=== PATIENT | male | born 1960 | race Caucasian/White ===

== ENCOUNTER 2019-01-29 20:28 | Inpatient (IN) | payer OTHER ==
[~2019-01-29] VITALS: Ht 177.8 cm; Wt 72.8 kg
--- NOTE | 2019-01-29 20:42 | ERD ---
ER Documentation Chief Complaint Chief Complaint NON RADIATING CP SARTED AT 1900,DENIES SOB HPI The patient is a 58-year-old male, presenting to the ER because of substernal chest pain, nonradiating, non-provoked began around 7 PM while he was sitting. He denies similar symptoms previously, he has intermittent symptoms for the last 2 weeks after he was started on Crestor. The chest pain is somewhat decreased with burping but not with this episode. He denies chest pain with vomiting/radiation/exertion/diaphoresis, dyspnea, abdominal pain, vomiting, dysuria, diarrhea. He does not smoke, drinks socially, denies illicit drug EMS administered 162 mg of aspirin with good response Medical history: Hypertension, dyslipidemia Past surgical history: Hemorrhoidectomy ROS All systems reviewed and are negative except as per history of present illness. Medications Home Meds Reported Medications Multivitamins* (Theragran*) 1 Tab Tab, 1 TAB PO DAILY, TAB 01/29/19 Rosuvastatin Calcium* (Crestor*) 10 Mg Tablet, 10 MG PO QHS, #30 TAB 01/29/19 Allergies Allergies: Coded Allergies: No Known Allergy (Unverified , 01/29/19) PMhx/Soc History of Surgery: Yes (HEMORRHOID REMOVAL ) Hx Cardiac Disorders: Yes (HTN, HLD) Hx Alcohol Use: No Hx Substance Use: No Hx Tobacco Use: No Smoking Status: Never smoker Physical Exam Vitals Vital Signs Date Temp Pulse Resp B/P (MAP) Pulse Ox O2 O2 Flow FiO2 Time Delivery Rate 01/29/19 60 16 163/104 100 Room Air 21:55 (123) 01/29/19 98.7 71 16 163/103 100 20:33 (123) Physical Exam Const: No acute distress. Head: Atraumatic. Eyes: Normal Conjunctiva. ENT: Normal External Ears, Nose and Mouth. Neck: Full range of motion. No meningismus. Resp: Clear to auscultation bilaterally. Cardio: Regular rate and rhythm. Abd: Soft, non distended, normal bowel sounds, non tender. Skin: No petechiae or rashes. Back: No midline or flank tenderness. Ext: No cyanosis, or edema. Neur: Awake and alert. No focal deficit Psych: Normal Mood and Affect. Result Diagram: 01/29/19203901/29/192039 Results 24 hrs Laboratory Tests Test 01/29/19 20:40 White Blood Count 8.4 10^3/ul Red Blood Count 5.53 10^6/ul Hemoglobin 15.9 g/dl Hematocrit 47.2 % Mean Corpuscular Volume 85.4 fl Mean Corpuscular Hemoglobin 28.8 pg Mean Corpuscular Hemoglobin Concent 33.7 g/dl Red Cell Distribution Width 12.7 % Platelet Count 358 10^3/UL Mean Platelet Volume 9.1 fl Immature Granulocytes % 0.500 % Neutrophils % 75.1 % Lymphocytes % 16.3 % Monocytes % 6.1 % Eosinophils % 1.3 % Basophils % 0.7 % Nucleated Red Blood Cells % 0.0 /100WBC Immature Granulocytes # 0.040 10^3/ul Neutrophils # 6.3 10^3/ul Lymphocytes # 1.4 10^3/ul Monocytes # 0.5 10^3/ul Eosinophils # 0.1 10^3/ul Basophils # 0.1 10^3/ul Nucleated Red Blood Cells # 0.0 10^3/ul Sodium Level 141 mmol/L Potassium Level 3.7 mmol/L Chloride Level 107 mmol/L Carbon Dioxide Level 25 mmol/L Anion Gap 9 Blood Urea Nitrogen 11 mg/dl Creatinine 0.71 mg/dl Est Glomerular Filtrat Rate mL/min > 60 mL/min Glucose Level 123 mg/dl Calcium Level 9.5 mg/dl Creatine Kinase 204 IU/L Troponin I 0.096 ng/ml Current Medications Medications Dose Sig/Milagro Start Time Status Last (Trade) Ordered Route PRN Stop Time Admin Dose Reason Admin Aspirin 162 mg ONCE ONCE 01/29/19 DC 01/29/19 (Aspirin) PO 22:30 22:34 01/29/19 22:31 1 inch ONCE ONCE 01/29/19 DC 01/29/19 Nitroglycerin TD 22:30 22:34 01/29/19 22:31 (Nitroglyceri n 2% Oint) Procedures/[place] [id number] Radiology Main Line: [phone] DIAGNOSTIC IMAGING REPORT Patient: HOANG BOLTON : 1960 Age: 58 Sex: M MR #: [id number] DOS: 01/29/192042 Ordering MD: SURI HOWARD MD Location: E/R Room/Bed: PROCEDURE: XR Chest. CLINICAL INDICATION: Chest pain TECHNIQUE: Frontal chest x-ray was obtained. COMPARISON: None. FINDINGS: The heart is not enlarged. Mediastinum is not widened. No hilar masses seen. Lungs are clear of any infiltrates. There is no effusion or pneumothorax. The osseous structures appear normal. IMPRESSION: No evidence for active cardiopulmonary disease. .Donis Phillips MD, MD Date Time Electronically viewed and signed by .Donis Phillips MD, MD on 01/29/2019 21:28 .A/ CC: SURI HOWARD MD [phone] EK:31p Read by emergency physician Rate/Rhythm: Normal Sinus Rhythm 65 beats/min QRS, ST, T-waves: No ST elevation, nonspecific ST and T abnormality, no PVC Impression: Abnormal EKG MEDICAL MAKING DECISION: The patient is a 58-year-old male with multiple cardiac risk factor, presenting with acute chest pain that is concerning for acute ACS. He was treated with additional aspirin 162 mg p.o. and 1 inch of nitroglycerin ointment to the chest wall with good response The differential diagnoses considered include but are not limited to acute coronary syndrome, acute myocardial infarction, pericarditis, pulmonary embolism, aortic dissection, pneumonia, pleural effusion, pneumothorax, GERD, chest wall pain. Departure Diagnosis: Primary Impression: Chest pain Condition: Stable Comments I discussed the findings with the patient. I discussed the patient with the [place] doctor at 11:55pm, who was made aware of the lab, the treatment, the patient condition. He agreed to admit the patient if the second troponin is negative Disclaimer: Inadvertent spelling and grammatical errors are likely due to EHR/dictation software use and do not reflect on the overall quality of patient care. Also, please note that the electronic time recorded on this note does not necessarily reflect the actual time of the patient encounter. SURI HOWARD MD January 29, 2019 20:42
[2019-01-29] MEDS ORDERED: NITROGLYCERIN 2% 1 GM OINT PKT TD ONE (22:30)
[2019-01-29] MEDS ORDERED: ASPIRIN 81 MG TAB PO ONE (22:30)
[2019-01-29] MEDS ORDERED: RSV10T PO (23:33)
[2019-01-29] MEDS ORDERED: MULTI PO (23:33)
[2019-01-30] VITALS (8 sets, daily range): BP systolic 104–137; BP diastolic 66–84; PULSE 66–81; RESP 16–18; Ht 177.8 cm; Wt 72.8 kg
[2019-01-30] MEDS ORDERED: ENOXAPARIN 40 MG/0.4 ML SYG SC STA (04:10)
[2019-01-30] MEDS ORDERED: ENOXAPARIN 80 MG/0.8 ML SYG SC ONE (04:30)
[2019-01-30] MEDS ORDERED: NITROGLYCERIN (SL) 0.4 MG TAB SL PRN (04:30)
[2019-01-30] MEDS ORDERED: NACL 0.9% 3 ML SYG IV SCH (04:30)
[2019-01-30] MEDS ORDERED: HYDROCODONE/APAP (5/325) TAB PO PRN ×2 (04:30)
[2019-01-30] MEDS ORDERED: ACETAMINOPHEN 325 MG TAB PO PRN (04:30)
[2019-01-30] MEDS ORDERED: ALBUTEROL/IPRATROPIUM (NEB) 3 ML AMP HHN PRN (04:30)
[2019-01-30] MEDS ORDERED: METOPROLOL 25 MG TAB PO SCH (04:30)
[2019-01-30] MEDS ORDERED: ONDANSETRON 4 MG INJ IV PRN (04:30)
[2019-01-30] MEDS: DEXTROSE 5%-0.45% NACL 1,000 ML IV SCH ×3 (05:00→20:24)
--- NOTE | 2019-01-30 06:46 | HP ---
Date/Time of Note Date/Time of Note DATE: 01/30/19 TIME: 06:42 Assessment/Plan VTE Prophylaxis Pharmacological prophylaxis: other Lines/Catheters IV Catheter Type (from Nrs): Saline Lock Assessment/Plan Assessment/Plan 1. NSTEMI -Status post treatment dose Lovenox and aspirin in ER -Third troponin significantly high. -will load with Plavix -Statin, beta-enrrique, scheduled nitro -Continue anticoagulation -2D echo and cardiology consult 2. Dyslipidemia: He said " my cholesterol has always been high since I was a teenager". He said he was just started on Crestor 2 weeks ago -Continue statin 3. Hypertension: Patient said his blood pressure has usually been in the 170s, but was never taken any medication -Started him on Lopressor Result Diagram: 01/30/19 0528 01/30/19 0527 Results 24hrs Laboratory Tests Test 01/29/19 20:40 01/30/19 00:10 01/30/19 05:27 01/30/19 05:28 White Blood Count 8.4 9.5 Red Blood Count 5.53 5.39 Hemoglobin 15.9 15.9 Hematocrit 47.2 46.6 Mean Corpuscular 85.4 86.5 Volume Mean Corpuscular 28.8 L 29.5 Hemoglobin Mean Corpuscular 33.7 34.1 Hemoglobin Concent Red Cell 12.7 13.2 Distribution Width Platelet Count 358 352 Mean Platelet Volume 9.1 9.3 Immature 0.500 H 0.400 Granulocytes % Neutrophils % 75.1 74.4 Lymphocytes % 16.3 14.5 L Monocytes % 6.1 8.4 Eosinophils % 1.3 1.5 Basophils % 0.7 0.8 Nucleated Red Blood 0.0 0.0 Cells % Immature 0.040 H 0.040 H Granulocytes # Neutrophils # 6.3 7.1 Lymphocytes # 1.4 1.4 Monocytes # 0.5 0.8 Eosinophils # 0.1 0.1 Basophils # 0.1 0.1 Nucleated Red Blood 0.0 0.0 Cells # Sodium Level 141 142 Potassium Level 3.7 4.3 Chloride Level 107 105 Carbon Dioxide Level 25 31 Anion Gap 9 6 Blood Urea Nitrogen 11 10 Creatinine 0.71 0.80 Est Glomerular > 60 > 60 Filtrat Rate mL/min Glucose Level 123 125 Calcium Level 9.5 9.8 Creatine Kinase 204 H 444 #H Troponin I 0.096 0.801 *H 3.960 *H Magnesium Level 2.3 Total Bilirubin 0.5 Direct Bilirubin 0.00 Indirect Bilirubin 0.5 Aspartate Amino 58 H Transf (AST/SGOT) Alanine 38 Aminotransferase (AL T/SGPT) Alkaline Phosphatase 59 Total Protein 7.1 Albumin 4.4 Globulin 2.70 Albumin/Globulin 1.62 Ratio Triglycerides Level 127 Cholesterol Level 156 LDL Cholesterol, 73 Calculated HDL Cholesterol 58 Cholesterol/HDL 2.6 Ratio Thyroid Stimulating Pending Hormone (TSH) Creatine Kinase 5.9 Index Creatinine Kinase MB 26.20 H (Mass) HPI/ROS Admit Date/Time Admit Date/Time Hx of Present Illness This is a 58-year-old male with a history of dyslipidemia who presents the ER complaining of chest pain. He said he was started on Crestor 2 weeks ago and since then, he said he has been experiencing chest pain. Pain is substernal, just above the epigastric area. He said the pain is better when he burps. He attributed pain to Crestor, but he continued to take the medication. He said that he did talk to his doctor about it. He also thought that her pain was from acid reflux because it was exacerbated after he ate spicy food. When he presented to the ER, his initial troponin was 0.096. EKG shows nonspecific ST-T wave abnormality without ST elevation. Patient belongs to [place] and initial plan by ER was to transfer the patient to [place]. While he was still in the ER, his second troponin came back positive at 0.8. He was given treatment dose Lovenox and aspirin. His third troponin now came back almost 4. Patient awaiting admission here to telemetry. Cardiology consult will be placed. PMH/Family/Social Past Medical History Past Medical History Medical History: other (See HPI) Past Surgical History Past Surgical Hx: other (See HPI) Family History Significant Family History: no pertinent family hx Social History Alcohol Use: none Smoking Status: Never smoker Drug Use: none Exam Constitutional: alert, oriented, well developed Head: normocephalic, atraumatic Eyes: EOMI, PERRL Respiratory: clear to auscultation, normal air movement Cardiovascular: regular rate and rhythm, nl pulses Gastrointestinal: soft, non-tender Extremities: normal pulses Medications Current Medications Dextrose/Sodium Chloride 1,000 ml @ 75 mls/hr [id number] IV ; Start 01/30/19 at 04:10 IV Flush (NS 3 ml) 3 ml PER PROTOCOL IV ; Start 01/30/19 at 04:30 Ondansetron HCl (Zofran Inj) 4 mg Q6H PRN IV NAUSEA/VOMITING; Start 01/30/19 at 04:30 Nitroglycerin (Nitroglycerin (Sl Tab) 0.4 Mg) 1 tab Q5M PRN SL .CHEST PAIN; Start 01/30/19 at 04:30 Acetaminophen (Tylenol Tab) 650 mg Q6H PRN PO .PAIN 1-3 OR TEMP; Start 01/30/19 at 04:30 Acetaminophen/ Hydrocodone Bitart ([place] (5/325)) 1 tab Q6H PRN PO .PAIN 4-6; Start 01/30/19 at 04:30 Acetaminophen/ Hydrocodone Bitart ([place] (5/325)) 2 tab Q6H PRN PO .PAIN 7-10; Start 01/30/19 at 04:30 Albuterol/ Ipratropium (Duoneb) 3 ml Q2H RESP THERAPY PRN HHN SHORTNESS OF BREATH; Start 01/30/19 at 04:30 Metoprolol Tartrate (Lopressor) 12.5 mg Q12H PO Last administered on 01/30/19at 06:05; Admin Dose 12.5 MG; Start 01/30/19 at 04:30 Atorvastatin Calcium (Lipitor) 40 mg DAILY@21 PO ; Start 01/30/19 at 21:00 Coded Allergies: No Known Allergy (Unverified , 01/29/19) Social History Smoking Status: Never smoker Exam/Review of Systems Vital Signs Vitals Vital Signs Date Temp Pulse Resp B/P (MAP) Pulse Ox O2 O2 Flow FiO2 Time Delivery Rate 01/30/19 68 16 160/101 100 Nasal 2.0 05:49 (120) Cannula 01/29/19 98.7 20:33 IVAN ERVIN MD January 30, 2019 06:46
[2019-01-30] MEDS ORDERED: CLOPIDOGREL 75 MG TAB PO ONE (07:00)
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
--- NOTE | 2019-01-30 16:08 | RADRPT ---
Echocardiogram Report Patient Name: HOANG BOLTONPatient ID: [id number] : 1960 (58y 9m)Study Date: 01/30/2019 9:19:38 AM Gender: Dorothycession #: [id number] Tech: Mikie Monson [facility] Location: [address] Ref.Physician: IVAN ERVIN Height(Cm): BSA: Weight(Kg): Quality: AdequateOrder Physician: IVAN ERVIN Account #: Procedures: Echocardiographic Report: Transthoracic echocardiogram with complete 2D, M-Mode, and doppler examination. Indications: NSTEMI. Measurements: 2D/M Mode Doppler Measurement Value Normal Range Measurement Value Normal Range LVIDd 2D 4.7 [ 4.2 - 5.8 ] cm AV Peak Yaya 1.1 [ 100.0 - 170.0 ] cm/sec LVIDs 2D 3.6 [ 2.5 - 4.0 ] cm AV Peak PG 5.0 [ 2.0 - 9.0 ] mmHg LVPWd 2D 1.0 [ 0.6 - 1.0 ] cm LVOT Peak Yaya 0.9 [ 70.0 - 110.0 ] cm/sec IVSd 2D 1.2 [ 0.6 - 1.0 ] cm LVOT Peak PG 3.0 [ 2.0 - 6.0 ] mmHg AoR Diam 2D 2.9 [ 2.6 - 3.4 ] cm MV E Peak Yaya 0.6 [ 60.0 - 130.0 ] cm/sec EDV 2D 103.0 [ 62.0 - 150.0 ] ml MV A Peak Yaya 0.8 [ 100.0 - 120.0 ] cm/sec ESV 2D 54.8 [ 21.0 - 61.0 ] ml MV E/A 0.7 [ 0.8 - 1.5 ] ratio EF 2D 46.8 [ 52.0 - 72.0 ] percent MV Decel Time 275 [ 104 - 258 ] msec LA Dimen 2D 3.4 [ 3.0 - 4.0 ] cm Lat E` Yaya 0.1 [ 10.0 - 15.0 ] cm/sec Lateral E/E` 7.8 [ 1.0 - 2.0 ] ratio MV E/A 0.7 [ 0.8 - 1.5 ] ratio TR Peak Yaya 2.6 [ 100.0 - 280.0 ] cm/sec TR Peak PG 27.0 mmHg RVSP 30.0 [ 10.0 - 36.0 ] mmHg Findings: Left Ventricle: Normal left ventricular cavity size. Sigmoid septum. Moderate left ventricular systolic dysfunction. Ejection fraction is visually estimated at 35 %. Tissue Doppler/Mitral Doppler indices are consistent with impaired relaxation (Stage I diastolic dysfunction). These segments of the LV are hypokinetic mid anterior segment, apical anterior segment, apex and apical septum. Right Ventricle: Normal right ventricular size. Normal right ventricular systolic function. Left Atrium: The left atrium is normal in size. Right Atrium: The right atrium is normal in size. Mitral Valve: Mild mitral leaflet calcification. Mild mitral annular calcification. Trace mitral regurgitation. Aortic Valve: No hemodynamically significant aortic stenosis by doppler. Aortic cusps appear mildly calcified. Mild aortic valve regurgitation. Tricuspid Valve: Normal appearance of the tricuspid valve. Estimated peak PA systolic pressure 30 mmHg. There is mild tricuspid regurgitation. Pericardium: Normal pericardium with no significant pericardial effusion. Aorta: Normal aortic root. IVC: Normal size and normal respiratory collapse consistent with normal right atrial pressure. Conclusions: Normal left ventricular cavity size. Sigmoid septum. Moderate left ventricular systolic dysfunction. Ejection fraction is visually estimated at 35 %. Tissue Doppler/Mitral Doppler indices are consistent with impaired relaxation (Stage I diastolic dysfunction). These segments of the LV are hypokinetic mid anterior segment, apical anterior segment, apex and apical septum. Mild mitral leaflet calcification. Mild mitral annular calcification. Trace mitral regurgitation. No hemodynamically significant aortic stenosis by doppler. Aortic cusps appear mildly calcified. Mild aortic valve regurgitation. Normal appearance of the tricuspid valve. Estimated peak PA systolic pressure 30 mmHg. There is mild tricuspid regurgitation. Electronically Signed By: Delgado Allison 2019-01-30 16:07:47 PDT
[2019-01-30] MEDS: HEPARIN 25000 UNITS/250 ML 250 ML IV SCH ×2 (16:27→18:10)
[2019-01-30] MEDS ORDERED: HEPARIN 1000 UNITS/ML 10 ML INJ IV ONE (17:00)
[2019-01-30] MEDS: ATORVASTATIN 80 MG TAB PO SCH (20:31)
[2019-01-30] MEDS: METOPROLOL 25 MG TAB PO SCH (20:32)
--- NOTE | 2019-01-30 20:43 | CONS ---
DATE OF ADMISSION: 01/30/2019 DATE OF CONSULTATION: 01/30/2019 REASON FOR CONSULTATION: Non-ST elevation myocardial infarction. REQUESTING PHYSICIAN: From the hospitalist service and Dr. Jorge. HISTORY OF PRESENT ILLNESS: Mr. Guillory is a 58-year-old male with history of dyslipidemia and recently diagnosed hypertension not yet on medications who states he was at work and he had onset of a chest pain described as a chest pressure and states that it would not go away throughout the day and subsequently presented to the Emergency Department here at [facility] where, upon arrival, temperature was 98.7, blood pressure markedly elevated at 163/103, pulse 71, respiratory rate of 16 and sat of 100%. The patient's labs were notable for a sodium of 141, creatinine 0.7 and BUN of 11. Troponin of 0.096. White cell 8.4, hemoglobin 15.9, platelet count of 258. The patient underwent a chest x-ray revealing no evidence of acute cardiopulmonary abnormalities. The patient's electrocardiogram revealed a normal sinus rhythm at rate of 65, normal axis with anterior T-wave inversion. The patient was admitted to the floor and since admit to floor, his troponin has trended and initially was negative and then became mildly positive and then has increased overnight to high of 5.4 at this time. The patient denies ongoing chest pain at this time. PAST MEDICAL HISTORY: As above in HPI. MEDICATIONS CURRENTLY IN HOSPITAL: 1. Aspirin 81 mg daily. 2. Lipitor 40 mg at bedtime. 3. Plavix 75 mg p.o. x1. 4. Metoprolol 12.5 mg q.12. 5. IV fluid hydration at 50 mL an hour. ALLERGIES: NO KNOWN DRUG ALLERGIES. SOCIAL HISTORY: No current tobacco, social EtOH, no illicit drug use. FAMILY HISTORY: No history of sudden cardiac or early CAD. REVIEW OF SYSTEMS: As above in HPI. CONSTITUTIONAL: No fevers or chills. PULMONARY: No current shortness of breath. CARDIOVASCULAR: No current chest pain. GASTROINTESTINAL: No vomiting. GENITOURINARY: No hematuria. MUSCULOSKELETAL: Degenerative joint disease. PSYCHIATRIC: The patient has depression. NEUROLOGIC: No documented CVA. PHYSICAL EXAMINATION: VITAL SIGNS: Temperature of 98, blood pressure 104/66, pulse 66, respiratory rate 18, saturating 99%. GENERAL: The patient is alert, awake, no acute distress. NECK: JVP approximately 8 cm water. CHEST: Fair air movement throughout. HEART: Regular rate and rhythm. Normal S1, S2, I/ murmur. Nondisplaced PMI. ABDOMEN: Positive bowel sounds, soft. EXTREMITIES: No significant pitting edema, 1+ pulses, posterior tibial. LABORATORY DATA: As above in HPI with most recently from today, troponin of 5.4. CK-MB of 29, up from 26.2. CK 406, down from 404. White cell count 9.5, hemoglobin 15.9 and platelet count 252. IMAGING STUDIES: As above in HPI. No further imaging for my review at this time. ECG: As above in HPI. No further electrocardiograms for my review at this time. IMPRESSION: 1. Non-ST elevation myocardial infarction with mildly trending cardiac enzymes. 2. Chest pain on admit, currently improved but consistent with patient's non-ST elevation myocardial infarction. 3. Abnormal electrocardiogram with anterior T-wave inversion. 4. Hypertension, borderline. 5. History of dyslipidemia. RECOMMENDATIONS: 1. At this time, the patient has been given a dose of Lovenox today, making anticoagulation somewhat difficult for catheterization. The patient has no chest pain at this time, but the patient does obtain enzymes and, therefore, I believe the patient will benefit from a cardiac catheterization during this index admission for treatment of non-ST elevation myocardial infarction. Thus, at this time, would maintain the patient on aspirin. The patient has already been on Plavix loading and can start p.o. Plavix tomorrow. 2. The patient will be made n.p.o. in preparation for a left heart catheterization likely to take place first thing in the morning. 3. Check a 2D echo to further assess the patient's ejection fraction and continue to check serial EKGs to assess for significant ongoing changes. Discontinue the patient's statin. We will increase it to high-dose statin at 80 mg for placement of a preoperative stent in the setting of acute [place]. Thank you for allowing me to take part in the care of this patient. I will continue to follow along very closely with you with further recommendations to be made as the patient progresses through his inpatient hospital course. Dictated By: JASON MCELROY/CINTIA Conf#: [id number] DID#: [id number] CC: SHAI JORGE MD; IVAN ERVIN MD;*EndCC* MTDD
[2019-01-30] MEDS ORDERED: NON-FORMULARY/PATIENT OWN MED (Rosuvastatin Calcium* (Crestor*) 10 MG) PO SCH (21:00)
[2019-01-30] MEDS ORDERED: ATORVASTATIN 40 MG TAB PO SCH (21:00)
[2019-01-30] MEDS: HEPARIN 1000 UNITS/ML 10 ML INJ IV PRN (22:29)
[2019-01-31] VITALS (40 sets, daily range): BP systolic 125–167; BP diastolic 78–108; PULSE 60–93; RESP 10–18
[2019-01-31] MEDS ORDERED: DIAZEPAM 5 MG TAB PO ONE (07:00)
[2019-01-31] MEDS ORDERED: DIPHENHYDRAMINE 50 MG CAP PO ONE (07:00)
[2019-01-31] MEDS: ASPIRIN (EC) 81 MG TAB PO SCH (08:15)
[2019-01-31] MEDS: METOPROLOL 25 MG TAB PO SCH ×2 (08:16→20:17)
[2019-01-31] MEDS: HEPARIN 1000 UNITS/ML 10 ML INJ IV PRN (09:59)
[2019-01-31] MEDS: HEPARIN 25000 UNITS/250 ML 250 ML IV SCH (10:00)
[2019-01-31] MEDS ORDERED: HEPARIN 1000 UNITS/ML 10 ML INJ ONE (11:11)
[2019-01-31] MEDS ORDERED: LIDOCAINE 1% (MDV) 20 ML INJ ONE (11:11)
[2019-01-31] MEDS ORDERED: IODIXANOL LOCM 100 ML BTL ONE ×4 (11:11→13:28)
[2019-01-31] MEDS ORDERED: NITROGLYCERIN (IC) 100 MCG/ML INJ ONE ×2 (11:12→13:06)
[2019-01-31] MEDS ORDERED: VERAPAMIL 5 MG INJ ONE (11:12)
[2019-01-31] MEDS ORDERED: MIDAZOLAM 1 MG/ML 2 ML INJ ONE (11:12)
[2019-01-31] MEDS ORDERED: FENTAnyl 50 MCG/ML VIAL ONE (11:12)
[2019-01-31] MEDS ORDERED: IOHEXOL 350MG/ML 50 ML BTL ONE (11:38)
[2019-01-31] MEDS ORDERED: BIVALIRUDIN 250MG /NS 50 ML 50 ML IVPB ONE ×2 (12:20→12:49)
[2019-01-31] MEDS ORDERED: ASPIRIN 325 MG TAB ONE (13:26)
[2019-01-31] MEDS ORDERED: TICAGRELOR 90 MG TABLET ONE (13:26)
--- NOTE | 2019-01-31 13:35 | CONS ---
Assessment/Plan Assessment/Plan Hospital Course (Demo Recall) IMPRESSION: 1. Non-ST elevation myocardial infarction with peak trop 5 2. Chest pain on admit, currently improved but consistent with patient's non-ST elevation myocardial infarction. 3. Abnormal electrocardiogram with anterior T-wave inversion. 4. Hypertension 5. History of dyslipidemia. Recc: -Tele -Continue asa -Continue metoprolol -continue statin -LHC with probable PTCA/stent today Consultation Date/Type/Reason Admit Date/Time January 30, 2019 at 01:28 Initial Consult Date 01/30/19 Type of Consult Cardiology Reason for Consultation Nstemi Requesting Provider: BRIE NEAL Date/Time of Note DATE: 01/31/19 TIME: 13:31 Exam/Review of Systems Vital Signs Vitals Vital Signs Date Temp Pulse Resp B/P (MAP) Pulse Ox O2 O2 Flow FiO2 Time Delivery Rate 01/31/19 66 08:18 01/31/19 Nasal 2.0 08:00 Cannula 01/31/19 98.4 16 125/79 97 07:27 (94) Intake and Output 01/30/19 01/30/19 01/31/19 1414:59 22:59 06:59 IntakeIntake Total 1050 ml BalanceBalance 1050 ml Exam Exam Review of Systems: CONSTITUTIONAL: No fevers, chills. PULMONARY: No sob CARDIOVASCULAR: intermirtten chest pain/palpitations GASTROINTESTINAL: No nausea/vomiting. GENITOURINARY: No hematuria/dysuria. MUSCULOSKELETAL: No myagias/arthalgias. PSYCHIATRIC: The patient denies depression. NEUROLOGIC: No weakness Constitutional: alert Psych: no complaints Head: normocephalic ENMT: mucosa pink and moist Neck: supple, jvd (9 cm water) Respiratory: clear to auscultation Cardiovascular: regular rate and rhythm Gastrointestinal: soft, non-tender Musculoskeletal: muscle tone (normal) Extremities: edema (none) Neurological: other (No focal deficits) Labs Result Diagram: 01/31/1972001/31/19720 Results 24hrs Laboratory Tests Test 01/30/19 14:45 01/30/19 16:54 01/30/19 20:39 01/31/19 07:21 Creatine Kinase 387 H Creatine Kinase 6.5 Index Creatinine Kinase MB 25.30 H (Mass) Troponin I 5.050 *H 2.200 *H White Blood Count 10.5 8.8 Red Blood Count 5.37 5.19 Hemoglobin 15.7 15.0 Hematocrit 46.0 45.1 Mean Corpuscular 85.7 86.9 Volume Mean Corpuscular 29.2 28.9 L Hemoglobin Mean Corpuscular 34.1 33.3 Hemoglobin Concent Red Cell 13.2 13.2 Distribution Width Platelet Count 364 330 Mean Platelet Volume 9.3 9.4 Immature 0.500 H 0.200 Granulocytes % Neutrophils % 76.7 73.6 Lymphocytes % 13.4 L 15.9 Monocytes % 7.7 7.8 Eosinophils % 1.0 1.7 Basophils % 0.7 0.8 Nucleated Red Blood 0.0 0.0 Cells % Immature 0.050 H 0.020 Granulocytes # Neutrophils # 8.1 H 6.5 Lymphocytes # 1.4 1.4 Monocytes # 0.8 0.7 Eosinophils # 0.1 0.2 Basophils # 0.1 0.1 Nucleated Red Blood 0.0 0.0 Cells # Prothrombin Time 13.5 13.6 Prothrombin Time 1.1 1.1 Ratio INR International 1.02 1.03 Normalized Ratio Activated > 180.0 *H 32.9 36.5 H Partial Thromboplast Time Sodium Level 142 Potassium Level 3.5 Chloride Level 108 Carbon Dioxide Level 28 Anion Gap 6 Blood Urea Nitrogen 11 Creatinine 0.80 Est Glomerular > 60 Filtrat Rate mL/min Glucose Level 130 Hemoglobin A1c 5.6 Calcium Level 8.9 Phosphorus Level 3.9 Magnesium Level 2.2 Triglycerides Level 126 Cholesterol Level 143 LDL Cholesterol, 66 Calculated HDL Cholesterol 52 Cholesterol/HDL 2.7 Ratio Thyroid Stimulating Pending Hormone (TSH) Medications Medications Current Medications IV Flush (NS 3 ml) 3 ml PER PROTOCOL IV ; Start 01/30/19 at 04:30 Ondansetron HCl (Zofran Inj) 4 mg Q6H PRN IV NAUSEA/VOMITING; Start 01/30/19 at 04:30 Nitroglycerin (Nitroglycerin (Sl Tab) 0.4 Mg) 1 tab Q5M PRN SL .CHEST PAIN; Start 01/30/19 at 04:30 Acetaminophen (Tylenol Tab) 650 mg Q6H PRN PO .PAIN 1-3 OR TEMP; Start 01/30/19 at 04:30 Acetaminophen/ Hydrocodone Bitart ([place] (5/325)) 1 tab Q6H PRN PO .PAIN 4-6; Start 01/30/19 at 04:30 Acetaminophen/ Hydrocodone Bitart ([place] (5/325)) 2 tab Q6H PRN PO .PAIN 7-10; Start 01/30/19 at 04:30 Albuterol/ Ipratropium (Duoneb) 3 ml Q2H RESP THERAPY PRN HHN SHORTNESS OF BREATH; Start 01/30/19 at 04:30 Aspirin (Halfprin) 81 mg DAILY PO Last administered on 01/31/19 08:15; Admin Dose 81 MG; Start 01/31/19 at 09:00 Metoprolol Tartrate (Lopressor) 25 mg Q12 PO Last administered on 01/31/19 08:16; Admin Dose 25 MG; Start 01/30/19 at 21:00 Heparin Sodium (Porcine) (Heparin (1000 Units/ml)) 4,000 unit PER PROTOCOL PRN IV aPTT<47 Last administered on 01/31/19 09:59; Admin Dose 4,000 UNIT; Start 01/30/19 at 17:00 Heparin Sodium (Porcine) 250 ml @ 8.5 mls/hr PER PROTOCOL IV Last administered on 01/31/19 10:00; Admin Dose 11.5 MLS/HR; Start 01/30/19 at 17:00 Atorvastatin Calcium (Lipitor) 80 mg DAILY@21 PO Last administered on 01/30/19at 20:31; Admin Dose 80 MG; Start 01/30/19 at 21:00 JASON VICENTE January 31, 2019 13:35
[2019-01-31] MEDS ORDERED: SOD CHLORIDE 0.9% 1,000 ML IV SCH (13:39)
--- NOTE | 2019-01-31 13:39 | SIPON ---
Date/Time of Note Date/Time of Note DATE: 01/31/19 TIME: 13:35 Operative Report Preoperative Diagnosis 1,NSTEMI Postoperative Diagnosis 1.obstructive cad s/p stent x 1 to LAD and x 1 to diag Operation/Procedure Performed 1.LHC 2.PTCA/stent x 1 to LAD 3.PTCA/stent x 1 to diag Surgeon see signature line medical billing assistant [place] Anesthesia: moderate sedation Estimated blood loss: minimal Transfusion Required none Specimen none Grafts/Implants none Complications none JASON VICENTE January 31, 2019 13:39
[2019-01-31] MEDS ORDERED: morphine 2 MG INJ IV PRN (14:00)
[2019-01-31] MEDS ORDERED: OXYCODONE/ACETAMINOPHEN (5/325) TAB PO PRN (14:00)
[2019-01-31] MEDS ORDERED: ONDANSETRON 4 MG INJ IV PRN (14:00)
[2019-01-31] MEDS ORDERED: ACETAMINOPHEN 325 MG TAB PO PRN (14:00)
[2019-01-31] MEDS ORDERED: AL HYDROX/MG HYDROX/SIMETH 30 ML CUP PO PRN (14:00)
[2019-01-31] MEDS ORDERED: hydrALAzine 20 MG INJ ONE (16:16)
[2019-01-31] MEDS ORDERED: hydrALAzine 20 MG INJ IV ONE (16:30)
[2019-01-31] MEDS: ATORVASTATIN 80 MG TAB PO SCH (20:17)
[2019-01-31] MEDS: TICAGRELOR 90 MG TABLET PO SCH (20:22)
--- NOTE | 2019-01-31 20:27 | CARRPT ---
DATE OF PROCEDURE: 01/31/2019 TYPE OF PROCEDURE: 1. Left heart catheterization. 2. Coronary angiography. 3. Percutaneous transluminal coronary angioplasty with placement of Synergy drug-eluting stent x1 to diagonal 2.25 x 15 mm and x1 to left anterior descending 3.0 x 18 mm. 4. Moderate conscious sedation. ATTENDING PHYSICIAN: Jason Allison MD REFERRING PHYSICIAN: Joseph Dunaway MD, from the hospitalist service. TYPE OF ANESTHESIA: Conscious and local. INDICATION: [id number] myocardial infarction. BRIEF HISTORY AND HOSPITAL COURSE: Mr. Guillory is a 58-year-old male with history of hypertension, dysl ipidemia who initially presented with complaint of substernal chest pain and ruled in for non-ST-elev ation myocardial infarction, underwent a 2D echo revealing a depressed EF and was then brought to [facility] catheterization lab in order to assess for possibility of significant obstructive coronary arter y disease lending to symptoms of chest pain, loa-VK-tuoelsxen myocardial infarction and decreased EF. PROCEDURE: After informed consent was obtained, the patient was brought to the [facility] cardiac catheterization lab where his right radial area was prepped and draped in a sterile f ashion. A 2% lidocaine was infiltrated into the right radial area to achieve adequate anesthesia. U sing the modified Seldinger technique, radial artery was cannulated and a 6-German arterial sheath wa s placed. A 6-German JL3.5 catheter was used to cannulate the left main coronary ostium. With contr ast injection, multiple views of the left coronary arteries were obtained. A JL3.5 guidewire and JR4 was used to cannulate the right coronary arterial ostium. With contrast injection, multiple views o f the right coronary arteries were obtained. A JL4 was removed over a guidewire and a 6-German pigta il was passed in the ascending aorta and used to measure LVEDP and pullback across the aortic valve t o assess for significant gradient, which there was none and removed. Subsequently, at this time, we moved directly to the interventional procedure. The patient received an Angiomax bolus continuous in fusion, after checking the pre-interventional ACT returning low as he had been on heparin overnight. Initially, the left main coronary ostium was cannulated with a Q3 guide and this we attempted to supervisor microwave ss the lesion with a balanced middleweight guidewire. This proved unsuccessful and was left in place in the diagonal that bifurcated just at the lesion. We then tried a Svp [employer] Sales 50 guidewire unsuccessful and then there we tried a Whisper and then a Svp Digital Sales 200 and then a Fielder XT, all unsuccessful. The n, we tried a Svp Digital Sales 200 with a Corsair device X support, still proved unsuccessful and finally we wer e able to cross the lesion with a Fielder FC, and then from there, we were able to do predilations in itially with a 2.5 x 12 mm balloon was kept watermelon seeding and therefore we used a 2.0 x 20 mm ba lloon to further predilate the LAD improving blood flow, and with improved left flow, we were able to see disease within the diagonal vessel, and so at that time, we placed a 2.5 x 12 mm drug-eluting st ent that was then deployed within the diagonal at 12 atmospheres, postdilated with the stent delivery system up to 14 atmospheres. Followup angiogram was obtained revealing somewhat of a moderate stepd own into the smaller vessel with FRANCIE 3 flow and no signs of complication including perforation or di ssection. Subsequently, the stent balloon was removed and we were able to stent the LAD at this time over a step wire after the wire was pulled back with a 3.0 x 18 mm jugular stent deployed at 14 atmo spheres, postdilated with the stent delivery system up to 18 atmospheres. The delivery balloon was r emoved and a followup angiogram was obtained after 200 mcg of IC nitroglycerin. Followup angiogram w as obtained revealing excellent result, deployment of stent, FRANCIE 3 flow throughout the vessel, no si gns of complication including perforation or dissection, and excellent flow ongoing throughout the di agonal. Subsequently at this time, the initial guide and guidewires were removed. The patient recei shyann Brilinta 180 mg and aspirin 325 mg. This completed the procedure. There were no noted complicat ions. FINDINGS: Coronary angiography: Right coronary artery proximally is a 3 mm vessel and its proximal portion has a 30 to 40% stenosis and this portion has another 10% to 20% stenosis, and then at the bi furcation with the posterolateral PDA, the PDA has an approximately 80% to 90% ostial stenosis. The left main 4.5 mm, no significant stenosis. Circumflex proximally is a 3 mm vessel and free of signif icant stenosis in this region. Circ continuation AV groove does have a distal bifurcation, with the obtuse marginal a 30% to 40% stenosis. There is a high branching obtuse marginal 2 mm with a midbody 50% stenosis and a mid-branching diagonal 2 mm with no significant focal stenoses. The LAD proximal ly is a 3.5 mm vessel and then right at the takeoff is 99% subtotally occluded with FRANCIE 1 to 2 flow extending towards the apex in the LAD and then the diagonal as noted earlier was of improved flow, wh ere we can see significant disease in the diagonal up to approximately 80% diffusely. Measurement of left end diastolic pressure of 9. No significant aortic stenosis by gradient. PTCA AND STENT PLACEMENT: 1. Prior to PTCA and stent placement in the diagonal, the patient had an 80% tubular stenosis. Post -PTCA and stent placement, the patient had no residual stenosis, moderate stepdown at the distal end of the stent. 2. Prior to PTCA and stent placement within the LAD, the patient had a 99% subtotal lesion. Post-PT CA and stent placement, the patient had no residual lesion. FRANCIE 3 flow throughout the vessel, no si gns of complication including perforation or dissection. TOTAL FLUOROSCOPY TIME: 42 minutes. TOTAL CONTRAST: 250 mL. IMPRESSION: 1. A two-vessel obstructive coronary artery disease involving the LAD and its daughter branch diagon al as well as a high-grade stenosis of the PDA with the LAD being the culprit for patient's non-ST-el evation myocardial infarction now successfully stented, a PT and stent placement x1 to left anterior descending and x1 to diagonal. 2. Low normal left heart filling pressures. 3. No significant aortic stenosis by gradient. RECOMMENDATIONS: 1. In light of procedure findings at this time, we would maintain patient now on aspirin 81 mg 1 tab p.o. daily indefinitely. 2. Brilinta 90 mg 1 tab p.o. b.i.d. for at least 1 year. 3. Maximize medical management. 4. The patient should undergo a staged procedure to treat his PDA which likely as he is stable at th is time and we will treat the completion to be done at his transfer facility in [place]. Dictated By: JASON MCELROY/CINTIA Conf#: [id number] DID#: [id number] CC: IVAN ERVIN MD;*End*
[2019-01-31] MEDS ORDERED: ZOLPIDEM 5 MG TAB PO PRN (21:00)
--- NOTE | 2019-01-31 21:48 | RADRPT ---
Vent Rate: 63 bpm RR Interval: 948 msec NH Interval: 149 msec QRS Duration: 108 msec QT Interval: 496 msec QTC Interval: 509 msec P-R-T Hatch: 63 - 26 - 165 degrees Sinus rhythm...normal P axis, V-rate 50- 99 Probable left atrial enlargement...P >50mS, <-0.10mV V1 Repol abnrm, prob ischemia, anterolateral lds...ST dep, T neg, I aVL V2-V6 Prolonged QT interval...QTc >500mS Electronically Signed By: Delgado Allison
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
[2019-02-01] VITALS (20 sets, daily range): BP systolic 104–137; BP diastolic 72–94; PULSE 71–110; RESP 11–22
[2019-02-01] MEDS: METOPROLOL 25 MG TAB PO SCH ×2 (08:41→20:07)
[2019-02-01] MEDS: ASPIRIN (EC) 81 MG TAB PO SCH (08:42)
[2019-02-01] MEDS: TICAGRELOR 90 MG TABLET PO SCH ×2 (08:43→20:13)
[2019-02-01] MEDS ORDERED: ASPIRIN (EC) 81 MG TAB PO SCH (09:00)
--- NOTE | 2019-02-01 11:57 | CONS ---
Assessment/Plan Assessment/Plan Hospital Course (Demo Recall) IMPRESSION: 1. Non-ST elevation myocardial infarction with peak trop 5. Now POD#1 s/p stent x 1 to LAD for 99% occlusion and x 1 to Diag. Still has PDA/RCA lesion that needs to be intervened upon 2. Chest pain on admit, currently improved but consistent with patient's non-ST elevation myocardial infarction. 3. Abnormal electrocardiogram with anterior T-wave inversion. 4. Hypertension 5. History of dyslipidemia. Recc: -Ok to [facility] and ok for transfer to [place] to have staged intervention upon RCA/PDA -Continue asa and brilinta now -Continue metoprolol -continue statin Consultation Date/Type/Reason Admit Date/Time January 30, 2019 at 01:28 Initial Consult Date 01/30/19 Type of Consult Cardiology Reason for Consultation Nstemi Requesting Provider: BRIE NEAL Date/Time of Note DATE: 02/01/19 TIME: 11:53 Exam/Review of Systems Vital Signs Vitals Vital Signs Date Temp Pulse Resp B/P (MAP) Pulse Ox O2 O2 Flow FiO2 Time Delivery Rate 02/01/19 74 15 122/77 95 Room Air 11:00 (92) 02/01/19 98.0 08:00 01/31/19 2.0 08:00 Intake and Output 01/31/19 01/31/19 02/01/19 1515:00 23:00 07:00 IntakeIntake Total 1469 ml 300 ml OutputOutput Total 1200 ml 250 ml BalanceBalance 269 ml 50 ml Exam Exam Review of Systems: CONSTITUTIONAL: No fevers, chills. PULMONARY: No sob CARDIOVASCULAR: No chest pain/palpitations GASTROINTESTINAL: No nausea/vomiting. GENITOURINARY: No hematuria/dysuria. MUSCULOSKELETAL: No myagias/arthalgias. PSYCHIATRIC: The patient denies depression. NEUROLOGIC: No weakness Constitutional: alert Psych: no complaints Head: normocephalic ENMT: mucosa pink and moist Neck: supple, jvd (9 cm water) Respiratory: clear to auscultation Cardiovascular: regular rate and rhythm Gastrointestinal: soft, non-tender Musculoskeletal: muscle tone (normal) Extremities: edema (none) Neurological: other (No focal deficits) Labs Result Diagram: 02/01/19 0422 02/01/19 0422 Results 24hrs Laboratory Tests Test 02/01/19 04:22 White Blood Count 10.6 # Red Blood Count 5.40 Hemoglobin 15.7 Hematocrit 46.8 Mean Corpuscular Volume 86.7 Mean Corpuscular Hemoglobin 29.1 Mean Corpuscular Hemoglobin Concent 33.5 Red Cell Distribution Width 13.3 Platelet Count 372 Mean Platelet Volume 9.5 Immature Granulocytes % 0.500 H Neutrophils % 76.2 Lymphocytes % 11.2 L Monocytes % 10.0 Eosinophils % 1.4 Basophils % 0.7 Nucleated Red Blood Cells % 0.0 Immature Granulocytes # 0.050 H Neutrophils # 8.1 H Lymphocytes # 1.2 Monocytes # 1.1 H Eosinophils # 0.2 Basophils # 0.1 Nucleated Red Blood Cells # 0.0 Sodium Level 143 Potassium Level 3.8 Chloride Level 109 Carbon Dioxide Level 25 Anion Gap 9 Blood Urea Nitrogen 9 Creatinine 0.74 Est Glomerular Filtrat Rate mL/min > 60 Glucose Level 124 Calcium Level 9.1 Magnesium Level 2.3 Medications Medications Current Medications IV Flush (NS 3 ml) 3 ml PER PROTOCOL IV ; Start 01/30/19 at 04:30 Nitroglycerin (Nitroglycerin (Sl Tab) 0.4 Mg) 1 tab Q5M PRN SL .CHEST PAIN; Start 01/30/19 at 04:30 Acetaminophen (Tylenol Tab) 650 mg Q6H PRN PO .PAIN 1-3 OR TEMP; Start 01/30/19 at 04:30 Acetaminophen/ Hydrocodone Bitart ([place] (5/325)) 1 tab Q6H PRN PO .PAIN 4-6; Start 01/30/19 at 04:30 Acetaminophen/ Hydrocodone Bitart (Laurel (5/325)) 2 tab Q6H PRN PO .PAIN 7-10; Start 01/30/19 at 04:30 Albuterol/ Ipratropium (Duoneb) 3 ml Q2H RESP THERAPY PRN HHN SHORTNESS OF BREATH; Start 01/30/19 at 04:30 Aspirin (Halfprin) 81 mg DAILY PO Last administered on 02/01/19at 08:42; Admin Dose 81 MG; Start 01/31/19 at 09:00 Metoprolol Tartrate (Lopressor) 25 mg Q12 PO Last administered on 02/01/19at 08:41; Admin Dose 25 MG; Start 01/30/19 at 21:00 Atorvastatin Calcium (Lipitor) 80 mg DAILY@21 PO Last administered on 01/31/19at 20:17; Admin Dose 80 MG; Start 01/30/19 at 21:00 Ticagrelor (Brilinta) 90 mg BID PO Last administered on 02/01/19at 08:43; Admin Dose 90 MG; Start 01/31/19 at 21:00 Acetaminophen (Tylenol Tab) 650 mg Q4H PRN PO PAIN; Start 01/31/19 at 14:00 Oxycodone/ Acetaminophen (Percocet (5/ 325)) 1 tab Q4H PRN PO PAIN; Start 01/31/19 at 14:00 Morphine Sulfate (morphine) 1 mg Q1H PRN IV PAIN; Start 01/31/19 at 14:00 Zolpidem Tartrate (Ambien) 5 mg HS MAY REPEAT X 1 PRN PO INSOMNIA; Start 01/31/19 at 21:00 Al Hydrox/Mg Hydrox/Simethicone (Mag-Al Plus) 30 ml Q4H PRN PO GASTROINTESTINAL UPSET; Start 01/31/19 at 14:00 Ondansetron HCl (Zofran Inj) 4 mg Q4H PRN IV NAUSEA AND/OR VOMITING; Start 01/31/19 at 14:00 JASON VICENTE February 01, 2019 11:57
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
--- NOTE | 2019-02-01 14:27 | PDOCDIS ---
Discharge Instructions CONDITION [id number] Patient Condition: [id number] Stable HOME CARE INSTRUCTIONS: [id number] Diet Instructions: [id number] Low Fat /Cholesterol ACTIVITY: [id number] Activity Restrictions: [id number] Slowly Increase Activity Do not Drive SHAI JORGE MD February 01, 2019 14:27
[2019-02-01] MEDS ORDERED: TICA90TA PO (14:28)
[2019-02-01] MEDS ORDERED: ASPI-1044 PO (14:28)
[2019-02-01] MEDS ORDERED: METO-448 PO (14:28)
--- NOTE | 2019-02-01 18:53 | RADRPT ---
Vent Rate: 74 bpm RR Interval: 804 msec RI Interval: 131 msec QRS Duration: 104 msec QT Interval: 444 msec QTC Interval: 495 msec P-R-T [place]: 51 - -5 - 109 degrees Sinus rhythm...normal P axis, V-rate 50- 99 Abnrm T, probable ischemia, anterolateral lds...T <-0.50mV, I aVL V2-V6 Electronically Signed By: Delgado Allison
[2019-02-01] MEDS: ATORVASTATIN 80 MG TAB PO SCH (20:06)
[2019-02-02] MEDS ORDERED: ENOXAPARIN 40 MG/0.4 ML SYG SC SCH (09:00)
== END 2019-02-01 20:40 | disposition short-term general hospital (02) | DRG 247 ==
LOC: E/R 20:28 → TEL 01-30 01:28 → UNDOADMOB 01-30 01:28 → TEL 01-30 01:28 → ICU 01-31 16:28 → TEL 02-01 14:38
PROVIDERS: ADMIT Internal Medicine; ATTEND Internal Medicine
PROC: B211YZZ Fluoroscopy of Multiple Coronary Arteries using Other Contrast (ICD-10-PCS; 2019-01-31)
PROC: 027135Z Dilation of Coronary Artery, Two Arteries with Two Drug-eluting Intraluminal Devices, Percutaneous Approach (ICD-10-PCS; principal; 2019-01-31 11:30)
PROC: 4A023N7 Measurement of Cardiac Sampling and Pressure, Left Heart, Percutaneous Approach (ICD-10-PCS; 2019-01-31 11:30)
DX: I21.4 Non-ST elevation (NSTEMI) myocardial infarction (principal); E78.5 Hyperlipidemia, unspecified; I10 Essential (primary) hypertension; I25.10 Atherosclerotic heart disease of native coronary artery without angina pectoris
CPT/HCPCS: 36415; 71045; 80048; 80053; 80061; 82550; 82553; 83036; 83735; 84100; 84443; 84484; 85025; 85610; 85730; 92928; 93005; 93306; 93458; C1725; C1874; C1887; J0360; J0583; J1644; J2250; J3010; J7030; J7042; Q9967